=== PATIENT | female | born 1940 | race Caucasian/White ===

== ENCOUNTER 2019-01-02 08:00 | Outpatient (CLI) | payer MEDICARE, OTHER ==
[2019-01-02 10:25] LABS: TOTAL PROTEIN 24HR,URINE 400 mg/24hr (40-150); TOTAL PROTEIN,URINE TIMED 40 mg/dL; TOTAL VOLUME 24HRS,URINE 1000 mL
== END 2019-01-02 23:59 | disposition home or self-care (01) ==
LOC: LAB.R 08:00
PROVIDERS: ATTEND Obstetrics & Gynecology Gynecologic Oncology
DX: R80.9 Proteinuria, unspecified (principal); C54.1 Malignant neoplasm of endometrium
CPT/HCPCS: 84156

== ENCOUNTER 2020-09-21 08:56 | Emergency (ER) | payer MEDICARE, OTHER ==
[2020-09-21] MEDS ORDERED: SODIUM CHLORIDE 0.9% 1,000 ML IV STA ×2 (09:47→13:06)
[2020-09-21 09:57] LABS: BASOPHILS % (AUTO) 0.5 %; EOSINOPHILS % (AUTO) 1.4 %; HCT - HEMATOCRIT 30.7 % (37.0-47.0); HGB - HEMOGLOBIN 9.6 g/dL (12.0-16.0); LYMPHOCYTES % (AUTO) 9.5 %; MEAN CORPUSCULAR HEMOGLOBIN 25.3 pg (27.0-31.0); MEAN CORPUSCULAR HGB CONC 31.3 g/dL (32.0-36.0); MEAN CORPUSCULAR VOLUME 80.8 fL (81.0-99.0); MEAN PLATELET VOLUME 10.1 fL (7.9-10.8); NEUTROPHILS % (AUTO) 76.1 %; PLT - PLATELET COUNT 101 10^3/uL (130-450); RED CELL DISTRIBUTION WIDTH 16.8 % (12.0-15.0); WHITE BLOOD COUNT 4.3 x10^3/uL (4.8-10.8)
[2020-09-21 10:00] LABS: ABNORMAL LYMPHS % (MANUAL) 0 %
--- OUTSIDE RECORDS SUMMARY | 2020-09-21 10:08 | EXTERNAL MEDICAL SUMMARY RPT | Continuity of Care Document ---
:1940 Demographics Phone Unavailable Preferred Language Unknown Marital Status Unknown Sabianist Affiliation Unknown Race Unknown Ethnic Group Unknown Author Organization [facility] Address [address] [phone] Phone Allergies Encounters Medications Problems Results
[2020-09-21 10:12] LABS: ALBUMIN 3.3 g/dL (3.2-5.5); ALBUMIN/GLOBULIN RATIO 0.9 (1.0-2.2); BILIRUBIN,TOTAL 1.2 mg/dL (0.2-1.0); CALCIUM 8.8 mg/dL (8.5-10.3); CREATININE 1.6 mg/dL (0.4-1.0); POTASSIUM 3.2 mmol/L (3.5-5.0)
[2020-09-21] MEDS ORDERED: ONDANSETRON 4 MG/2 ML VIAL IVP STA (10:33)
[2020-09-21 10:48] LABS: BAND NEUTROPHILS % (MANUAL) 26 %; BASOPHILS # (MANUAL) 0.1 10^3/uL (0-0.1); BASOPHILS % (MANUAL) 2 %; DIFFERENTIAL COMMENT MANUAL DIFFERENTIAL; LYMPHOCYTES # (MANUAL) 0.5 10^3/uL (1.5-3.5); LYMPHOCYTES % (MANUAL) 12 %; MONOCYTES # (MANUAL) 0.2 10^3/uL (0.0-1.0); NEUTROPHILS # (MANUAL) 3.5 10^3/uL (1.5-6.6); PLATELET ESTIMATE, MANUAL DECREASED (<130,000) (NORMAL); PLATELET MORPHOLOGY NORMAL APPEARANCE (NORMAL); RBC MORPHOLOGY (MULTIPLE) 1+ ANISOCYTOSIS (NORMAL); WBC MORPHOLOGY (MULTIPLE) 1+ VACUOLATION (NORMAL)
[2020-09-21] MEDS ORDERED: LOPERAMIDE ORAL SOLUTION 2 MG/15 ML UDC PO STA (11:46)
--- NOTE | 2020-09-21 12:20 | ED Physician Documentation ---
History of Present Illness - Stated complaint Stated Complaint: WEAK/DIRRHEA - Chief complaint Chief Complaint: Abd Pain - History obtained from History obtained from: Patient - Additonal information Additional information: Is emergency department chief complaint of diarrhea for 5 days. She states that she is here because she just feels weak and everything, including her pills, are just going straight through her. Patient states that she is not sure if she ate something wrong or if she picked up an illness somewhere. She states she had some nausea and vomiting the first couple days but then this resolved. Patient states that she normally eats vegan and prepares all her food fresh herself. However, the day before symptoms started, she had eaten some food that was vegan but prepared by somebody else and she is not sure if she got sick there. No fevers or chills. Patient states that she is currently being treated with oral chemotherapy for cancer, but has been on the same regimen for the last year and has not had any trouble with diarrhea with this. No other complaints at this time. Review of Systems Ten Systems: 10 systems reviewed and negative Constitutional: reports: Reviewed and negative Eyes: reports: Reviewed and negative Ears: reports: Reviewed and negative Nose: reports: Reviewed and negative Throat: reports: Reviewed and negative Cardiac: reports: Reviewed and negative Respiratory: reports: Reviewed and negative GI: reports: Diarrhea : reports: Reviewed and negative Skin: reports: Reviewed and negative Musculoskeletal: reports: Reviewed and negative Neurologic: reports: Generalized weakness Psychiatric: reports: Reviewed and negative Endocrine: reports: Reviewed and negative Immunocompromised: reports: Reviewed and negative PD PAST MEDICAL HISTORY - Past Medical History Past Medical History: Yes Cardiovascular: Atrial fibrillation Respiratory: Other [employer]: Other Other Past Medical History: Endometrial cancer. Abdominal tumor - Present Medications Home Medications: Ambulatory Orders Medication Instructions Recorded Confirmed Apixaban [Eliquis] 5 mg PO BID 09/21/20 09/21/20 Biotin 0 mg PO DAILY 09/21/20 09/21/20 Everolimus [Afinitor] 10 mg PO DAILY 09/21/20 09/21/20 Ferrous Bis-Glycinate Chelate 62 mg PO ONCE 09/21/20 09/21/20 [Iron Glycinate] Folic Acid 1,700 mcg PO DAILY 09/21/20 09/21/20 Furosemide [Lasix] 40 mg PO DAILY 09/21/20 09/21/20 Gabapentin [Neurontin] 900 mg PO DAILY PM 09/21/20 09/21/20 Letrozole 2.5 mg PO DAILY 09/21/20 09/21/20 Levothyroxine Sodium 137 mcg PO DAILY 09/21/20 09/21/20 [Levothyroxine] Lidocaine/Prilocain 2.5% Cream 1 applic TOP PRN PRN 09/21/20 09/21/20 [Emla 2.5% Cream] Loperamide Oral Solution [Imodium 2 mg PO Q4H PRN #180 ml 09/21/20 Oral Solution] Mecobalamin [B-12] 2,500 mcg PO DAILY 09/21/20 09/21/20 Metoprolol Succinate [Toprol Xl] 25 mg PO DAILY 09/21/20 09/21/20 Omeprazole 40 mg PO DAILY 09/21/20 09/21/20 Ondansetron Odt [Zofran Odt] 4 mg TL Q6H PRN 09/21/20 09/21/20 Ondansetron Odt [Zofran] 4 mg TL Q6H PRN #20 tablet 09/21/20 Potassium Chloride [Klor-Con 10] 2 tab PO BID 09/21/20 09/21/20 Pyridoxine HCl (Vitamin B6) [B-6] 50 mg PO DAILY 09/21/20 09/21/20 - Allergies Allergies/Adverse Reactions: Allergies Allergy/AdvReac Type Severity Reaction Status Date / Time caffeine AdvReac Rash Verified 09/21/20 09:02 - Social History Does the pt smoke?: No Smoking Status: Never smoker PD ED PE NORMAL - Vitals Vital signs reviewed: Yes - General General: Alert and oriented X 3, No acute distress, Well developed/nourished - HEENT HEENT: Atraumatic, PERRL, EOMI, Moist mucous membranes - Neck Neck: Supple, no meningeal sign - Cardiac Cardiac: RRR, No murmur, Strong equal pulses - Respiratory Respiratory: No respiratory distress, Clear bilaterally - Abdomen Abdomen: Soft, Non tender, Non distended - Back Back: No CVA TTP - Derm Derm: Warm and dry - Extremities Extremities: No deformity, No edema - Neuro Neuro: Alert and oriented X 3, design maker 2-12 intact, Normal speech, Other (Grossly normal otherwise) - Psych Psych: Normal mood, Normal affect Results - Vitals Vitals: Vital Signs - 24 hr 09/21/20 09/21/20 09/21/20 09:02 10:31 12:17 Temperature 36.2 C L Heart Rate 96 77 84 Respiratory 18 16 16 Rate Blood Pressure 128/94 H 153/88 H 127/71 O2 Saturation 99 99 99 09/21/20 14:21 Temperature 36.5 C Heart Rate 88 Respiratory 16 Rate Blood Pressure 140/86 H O2 Saturation 100 Oxygen O2 Source Room air - Labs Labs: Laboratory Tests 09/21/20 09/21/20 09/21/20 09:51 09:51 11:35 WBC 4.3 L RBC 3.80 L Hgb 9.6 L Hct 30.7 L MCV 80.8 L MCH 25.3 L MCHC 31.3 L RDW 16.8 H Plt Count 101 L MPV 10.1 Neut # (Auto) Not Reportable Lymph # (Auto) Not Reportable Braxton # (Auto) Not Reportable Eos # (Auto) Not Reportable Baso # (Auto) Not Reportable Absolute Nucleated RBC Not Reportable Total Counted 100 Band Neuts % (Manual) 26 H Abnorm Lymph % (Manual) 0 Nucleated RBC % Not Reportable Neutrophils # (Manual) 3.5 Lymphocytes # (Manual) 0.5 L Monocytes # (Manual) 0.2 Eosinophils # (Manual) 0.0 Basophils # (Manual) 0.1 Differential Comment MANUAL DIFFERENTIAL WBC Morphology 1+ VACUOLATION Platelet Estimate DECREASED (<130,000) Platelet Morphology NORMAL APPEARANCE RBC Morph Micro Appear 1+ ANISOCYTOSIS Sodium 139 Potassium 3.2 L Chloride 104 Carbon Dioxide 18 L Anion Gap 17.0 H BUN 26 H Creatinine 1.6 H Estimated GFR (MDRD) 31 L Glucose 75 Calcium 8.8 Total Bilirubin 1.2 H AST 26 ALT 16 Alkaline Phosphatase 82 Total Protein 7.0 Albumin 3.3 Globulin 3.7 Albumin/Globulin Ratio 0.9 L Lipase 30 Stl C. diff Tox B Gene NEGATIVE PD MEDICAL DECISION MAKING - ED course Complexity details: reviewed results, re-evaluated patient, considered differential, d/w patient ED course: Patient was treated symptomatically with 2 L of IV fluid, Zofran, and liquid Imodium. She reported feeling better, but did have several episodes of diarrhea in the emergency department. Patient's labs showed a slightly decreased potassium but otherwise, no other abnormalities of significance. I discussed with the patient that at this point in time, our focus will be to try to slow her bowels down and hydration is the most important focus otherwise. She is able to take p.o. without difficulty and I do not find that she meets criteria for admission at this time. I have encouraged her to crush her meds in hopes of achieving faster absorption. I will put her on Zofran for its constipating side effects, as well as Imodium. I have encouraged the patient to reach out to her primary doctor tomorrow for follow-up on this. Departure - Departure Disposition: Home, Self Care Clinical Impression: Diarrhea Qualifiers: Diarrhea type: unspecified type Qualified Code(s): R19.7 - Diarrhea, unspecified Condition: Stable Instructions: ED Diarrhea Viral Prescriptions: Loperamide Oral Solution [Imodium Oral Solution] 2 mg PO Q4H PRN #180 ml PRN Reason: Diarrhea Ondansetron Odt [Zofran] 4 mg TL Q6H PRN #20 tablet PRN Reason: Nausea / Vomiting Comments: Your labs Show a slightly decreased potassium but otherwise, no significant abnormalities. You have been treated for dehydration and your diarrhea today. Please take the medications prescribed to help with the diarrhea. Please call your doctor first thing in the morning to follow-up if your diarrhea is unchanged. Discharge Date/Time: 09/21/20 14:58
[2020-09-21 14:22] VITALS: BP 140/86
== END 2020-09-21 14:58 | disposition home or self-care (01) ==
LOC: ED 08:56
DX: R19.7 Diarrhea, unspecified (principal); E86.0 Dehydration; I48.91 Unspecified atrial fibrillation; Z79.01 Long term (current) use of anticoagulants
CPT/HCPCS: 36415; 80053; 83690; 85025; 87493; 87798; 93005; 96361; 96374; 96375; 99283; 99285; A9270; 87045; 87046

== ENCOUNTER 2021-11-10 13:44 | Outpatient (CLI) | payer MEDICARE, OTHER | END 2021-11-10 13:45 | disposition short-term general hospital (02) | LOC: EMS 13:44 | DX: R07.1 Chest pain on breathing (principal) | CPT/HCPCS: A0425; A0429 ==